=== PATIENT | female | born 1955 | race Caucasian/White ===

== ENCOUNTER 2022-02-13 08:52 | Observation (INO) ==
[2022-02-13] MEDS ORDERED: Ipratropium/Albuterol Neb 3 ML IH ONE (09:36)
[2022-02-13 09:51] LABS: Basophils # 0.1 K/mcL (0.0-0.2); Basophils % 0.4 %; Eosinophils % 0.1 %; Hematocrit 43.1 % (35.3-44.9); Hemoglobin 14.3 g/dL (11.5-15.4); Immature Granulocytes % 0.3 % (0-4); Lymphocytes # 1.5 K/mcL (0.6-4.6); Lymphocytes % 10.8 %; Mean Corpuscular HGB Conc 33.2 g/dL (31.6-35.5); Mean Corpuscular Hemoglobin 29.4 pg (28.0-33.3); Mean Corpuscular Volume 88.7 fL (83.0-100.0); Mean Platelet Volume 10.2 fL (9.4-12.4); Monocytes # 0.7 K/mcL (0.0-1.3); Monocytes % 4.8 %; Neutrophils # 11.3 K/mcL (1.6-8.9); Platelet Count 376 K/mcL (140-400); Red Blood Count 4.86 M/mcL (3.82-4.97); Red Cell Distribution Width 13.5 % (11.5-14.5); Segmented Neutrophils % 83.6 %; White Blood Count 13.5 K/mcL (4.3-11.1)
[2022-02-13 11:07] LABS: BUN/Creatinine Ratio 19 (6-26); Blood Urea Nitrogen 16 mg/dL (8-23); Calcium 8.7 mg/dL (8.6-10.3); Carbon Dioxide 25 mEq/L (23-29); Chloride 99 mEq/L (98-107); Glucose 123 mg/dL (70-105); Osmolality,Calculated 281 (280-300); Potassium 3.6 mEq/L (3.5-5.1); Sodium 134 mEq/L (136-145)
[2022-02-13 11:07] LABS: Adenovirus Not Detected (Not Detect); Bordetella Pertussis Not Detected (Not Detect); Chlamydophila pneumoniae Not Detected (Not Detect); Coronavirus 229E Not Detected (Not Detect); Coronavirus HKU1 Not Detected (Not Detect); Coronavirus NL63 Not Detected (Not Detect); Coronavirus OC43 Not Detected (Not Detect); Human Metapneumovirus Not Detected (Not Detect); Human Rhinovirus/Enterovirus DETECTED (Not Detect); Influenza A Subtype 2009 H1 Not Detected (Not Detect); Influenza B Not Detected (Not Detect); Mycoplasma pneumoniae Not Detected (Not Detect); Parainfluenza Virus 1 Not Detected (Not Detect); Parainfluenza Virus 2 Not Detected (Not Detect); Parainfluenza Virus 3 Not Detected (Not Detect); Parainfluenza Virus 4 Not Detected (Not Detect); Respiratory Syncytial Virus Not Detected (Not Detect); SARS-CoV-2 Not Detected (Not Detect)
[2022-02-13 11:08] LABS: Troponin I < 0.03 ng/mL (< 0.04)
[2022-02-13] MEDS ORDERED: methylPREDNISolone 125 MG/2 ML VIAL IVP ONE (12:10)
[2022-02-13] MEDS ORDERED: 0.9 % Sodium Chloride 1,000 ML IVC ONE (12:17)
[2022-02-13] MEDS ORDERED: Ipratropium Neb 0.5 MG NEBULIZER IH PRN (12:17)
[2022-02-13] MEDS ORDERED: Piperacillin/Tazobactam 3.375 GM in 0.9 % Sodium Chloride Mini Bag 100 ML IVPB SCH (13:00)
[2022-02-13] MEDS ORDERED: Ondansetron 4 MG/2 ML VIAL IVP PRN (13:05)
[2022-02-13] MEDS ORDERED: Naloxone 0.4 MG/ML INJ IVP PRN (13:05)
[2022-02-13] MEDS ORDERED: Melatonin 3 MG TABLET PO PRN (13:05)
[2022-02-13] MEDS ORDERED: MOM Conc 10 ML UD.LIQ PO PRN (13:05)
[2022-02-13] MEDS: Acetaminophen 325 MG TABLET PO PRN (14:44)
[2022-02-13] MEDS ORDERED: D5% in Water 1,000 ML IVC PRN (15:28)
[2022-02-13] MEDS ORDERED: Dextrose Gel 15 GM/37.5 ML TUBE PO PRN ×2 (15:28)
[2022-02-13] MEDS ORDERED: *HR* Dextrose 50 % in Water (Syg) 50 ML SYRINGE IVP PRN (15:28)
[2022-02-13] MEDS: Levalbuterol Neb 0.63 MG/3 ML IH SCH ×2 (15:45→22:26)
[2022-02-13 15:56] LABS: Magnesium 1.8 mg/dL (1.6-2.6)
[2022-02-13] MEDS: 0.9 % Sodium Chloride 1,000 ML IVC SCH (16:42)
[2022-02-13] MEDS: *HR* HYDROcodone/Acet 7.5/325 mg TABLET PO PRN (16:42)
[2022-02-13] MEDS: Insulin LISPRO 300 UNITS/3 ML VIAL SUBQ SCH ×2 (18:10→20:27)
[2022-02-13] MEDS: MethylPREDNISolone 40 MG/ML VIAL IVP SCH (20:27)
[2022-02-13] MEDS: Gabapentin 300 MG CAPSULE PO SCH (20:27)
[2022-02-14 03:48] LABS: Basophils % 0.1 %; Hematocrit 38.1 % (35.3-44.9); Hemoglobin 12.3 g/dL (11.5-15.4); Immature Granulocytes % 0.5 % (0-4); Lymphocytes % 12.3 %; Mean Corpuscular HGB Conc 32.3 g/dL (31.6-35.5); Mean Corpuscular Hemoglobin 28.5 pg (28.0-33.3); Mean Corpuscular Volume 88.4 fL (83.0-100.0); Mean Platelet Volume 10.1 fL (9.4-12.4); Monocytes # 0.1 K/mcL (0.0-1.3); Monocytes % 1.6 %; Neutrophils # 6.8 K/mcL (1.6-8.9); Platelet Count 375 K/mcL (140-400); Red Blood Count 4.31 M/mcL (3.82-4.97); Red Cell Distribution Width 13.2 % (11.5-14.5); Segmented Neutrophils % 85.5 %
[2022-02-14 04:05] LABS: BUN/Creatinine Ratio 25 (6-26); Blood Urea Nitrogen 15 mg/dL (8-23); Calcium 7.4 mg/dL (8.6-10.3); Carbon Dioxide 22 mEq/L (23-29); Chloride 111 mEq/L (98-107); Glucose 113 mg/dL (70-105); Osmolality,Calculated 296 (280-300); Potassium 3.1 mEq/L (3.5-5.1); Sodium 142 mEq/L (136-145)
[2022-02-14] MEDS: Levalbuterol Neb 0.63 MG/3 ML IH SCH ×4 (04:49→22:57)
[2022-02-14] MEDS: 0.9 % Sodium Chloride 1,000 ML IVC SCH (05:42)
[2022-02-14] MEDS: *HR* HYDROcodone/Acet 7.5/325 mg TABLET PO PRN ×3 (05:42→17:56)
[2022-02-14] MEDS: Insulin LISPRO 300 UNITS/3 ML VIAL SUBQ SCH ×4 (09:40→21:49)
[2022-02-14] MEDS: Gabapentin 300 MG CAPSULE PO SCH ×2 (09:41→20:57)
[2022-02-14] MEDS: amLODIPine 5 MG TABLET PO SCH (09:41)
[2022-02-14] MEDS: MethylPREDNISolone 40 MG/ML VIAL IVP SCH ×2 (09:41→20:56)
[2022-02-14] MEDS: Aspirin Enteric Coated 81 MG Tablet PO SCH (09:41)
[2022-02-14] MEDS: Acetaminophen 325 MG TABLET PO PRN (20:57)
[2022-02-15] MEDS: Levalbuterol Neb 0.63 MG/3 ML IH SCH ×2 (03:31→09:53)
[2022-02-15] MEDS: Acetaminophen 325 MG TABLET PO PRN (05:25)
[2022-02-15] MEDS: *HR* HYDROcodone/Acet 7.5/325 mg TABLET PO PRN ×2 (05:25→11:25)
[2022-02-15] MEDS: 0.9 % Sodium Chloride 1,000 ML IVC SCH ×2 (05:28→05:29)
[2022-02-15] MEDS: Insulin LISPRO 300 UNITS/3 ML VIAL SUBQ SCH ×2 (07:51→11:27)
[2022-02-15] MEDS: Gabapentin 300 MG CAPSULE PO SCH (08:43)
[2022-02-15] MEDS: amLODIPine 5 MG TABLET PO SCH (08:43)
[2022-02-15] MEDS: Aspirin Enteric Coated 81 MG Tablet PO SCH (08:43)
[2022-02-15] MEDS: MethylPREDNISolone 40 MG/ML VIAL IVP SCH (08:44)
[2022-02-15 10:48] VITALS: BP 148/74; PULSE 88; TEMP 97.9; O2SAT 93
== END 2022-02-15 12:50 | disposition home or self-care (01) ==
LOC: 3ANU 08:52 → EMEROOARM 08:52 → 3ANU 15:51
PROVIDERS: ADMIT Internal Medicine; ATTEND Internal Medicine